=== PATIENT | female | born 1980 | race Hispanic/Latino ===

== ENCOUNTER 2017-04-19 10:15 | Outpatient (CLI) | payer OTHER ==
--- NOTE | 2017-04-19 13:52 | Ultrasound Report ---
TRANSABDOMINAL AND TRANSVAGINAL PELVIC ULTRASOUND: 04/19/17 10:15:00 CLINICAL: Pelvic pain and perineal pain. FINDINGS: Transabdominal and transvaginal pelvic ultrasound demonstrated a mildly enlarged fibroid uterus measuring 10.5 x 6.2 x 5.3 cm. A dominant intramural fundal fibroid measures 5.5 x 6.0 x 5.7 cm. No additional fibroids are identified. The endometrium was best imaged in the transverse plane and measured 2.3 mm in AP thickness. Several nabothian cysts in the cervix with the largest measuring 2.3 cm. A right ovary was not identified. The left ovary measures 3.2 x 2.3 x 2.3 cm and contains a complex cyst measuring 1.7 x 1.3 x 1.4 cm. No adnexal mass. No free fluid. Normal urinary bladder. IMPRESSION: 1. A mildly enlarged fibroid uterus with a dominant 6 cm fundal fibroid. 2. Less than optimal imaging of the endometrium but no endometrial thickening identified. 3. A 1.7 cm complex cyst of the left ovary is probably a benign hemorrhagic cyst. 4. No right ovary identified.
--- NOTE | 2017-04-20 08:53 | Mammography Report ---
BILATERAL DIGITAL SCREENING MAMMOGRAM with CAD: 04/19/17 10:15:00 CLINICAL: Routine screening. COMPARISON:09/14/15 FINDINGS: The breasts are heterogeneously dense, which may obscure small masses. No mass, architectural distortion or suspicious calcifications. IMPRESSION: No mammographic evidence of malignancy. BI-RADS CATEGORY: 1 - - Negative RECOMMENDATION: Routine mammographic screening in one year. COMMENT: Patient follow-up letters are generated by our [employer] application.
== END 2017-04-19 10:16 | disposition home or self-care (01) ==
LOC: SPVWC 10:15
PROVIDERS: ATTEND Internal Medicine
DX: Z12.31 Encounter for screening mammogram for malignant neoplasm of breast (principal); Z01.419 Encounter for gynecological examination (general) (routine) without abnormal findings; D25.1 Intramural leiomyoma of uterus; N88.8 Other specified noninflammatory disorders of cervix uteri; N83.292 Other ovarian cyst, left side
CPT/HCPCS: 76830; 76856; G0202; 77067